=== PATIENT | male | born 1955 | race Hispanic/Latino ===

== ENCOUNTER 2018-04-04 06:39 | Day surgery (SDC) | payer MEDICARE, OTHER ==
[2018-04-04 07:30] LABS: Basophils # (Auto) 0.1 K/mm3 (0.0-0.1); Basophils % (Auto) 1.2 % (0.0-1.8); Eosinophils # (Auto) 0.2 K/mm3 (0.0-0.4); Eosinophils % (Auto) 2.5 % (0.0-4.3); Hematocrit 43.2 % (35.5-45.6); Hemoglobin 14.8 gm/dl (11.8-15.2); Lymphocytes # (Auto) 1.9 K/mm3 (1.2-5.4); Lymphocytes % (Auto) 20.9 % (13.4-35.0); Mean Corpuscular HGB Conc 34 % (32-34); Mean Corpuscular Hemoglobin 30 pg (28-32); Mean Corpuscular Volume 87 fl (84-94); Monocytes # (Auto) 0.8 K/mm3 (0.0-0.8); Monocytes % (Auto) 9.2 % (0.0-7.3); Platelet Count 215 K/mm3 (140-440); Red Blood Count 4.97 M/mm3 (3.65-5.03); Red Cell Distribution Width 15.7 % (13.2-15.2)
[2018-04-04 07:40] LABS: INR 1.01 (0.87-1.13)
[2018-04-04 07:42] LABS: BUN/Creatinine Ratio 21; Blood Urea Nitrogen 17 mg/dL (9-20); Calcium 8.9 mg/dL (8.4-10.2); Hemolysis Index 35
[2018-04-04] MEDS ORDERED: NACL 0.9% 500 ML 500 ML IV SCH (08:00)
[2018-04-04] MEDS ORDERED: ECOTRIN PO ONE (08:00)
[2018-04-04] MEDS ORDERED: HEPARIN/NS 5000 UNIT/500ML(CATH LAB) 1,000 ML IR ONE (08:26)
[2018-04-04] MEDS ORDERED: CALAN ONE (08:27)
[2018-04-04] MEDS ORDERED: XYLOCAINE 2% INFILTRATI ONE (08:27)
[2018-04-04] MEDS ORDERED: NITROGLYCERIN SYRINGE 3 ML ONE (08:27)
[2018-04-04] MEDS ORDERED: HEPARIN 10,000 UNITS/10 ML ONE (08:27)
[2018-04-04] MEDS ORDERED: VERSED ONE (08:47)
[2018-04-04] MEDS ORDERED: SUBLIMAZE ONE (08:47)
--- NOTE | 2018-04-04 11:55 | Cardiac Catherization Report ---
LEFT HEART CATHETERIZATION REFERRING PHYSICIAN: Ruben Irby MD INDICATION FOR PROCEDURE: The patient is a pleasant 63-year-old gentleman, who has significant dyspnea on exertion, multiple risk factors and abnormal nuclear stress test, referred for left heart catheterization. Risks, benefits, and potential alternatives were explained in length prior to obtaining informed consent. PROCEDURE IN DETAIL: The patient was brought to the catheterization lab in a postabsorptive state, prepped and draped in sterile fashion. Jose Antonio's test in right hand was normal. A 2 mL of 2% lidocaine used to anesthetize the right wrist. A standard 6-[place] hydrophilic sheath used to cannulate the right radial artery via modified Seldinger technique. All exchanges performed to exchange a J-tip guidewire. JL3.5 catheter used to engage the left main. No dampening or ventricularization. Cineangiography performed in all projections. JR4 catheter used to cross the aortic valve under fluoroscopic guidance. Left ventriculography performed in 30 [place] and 30 [place] projections via hand injections, catheter flushed. Manual pullback performed with continuous pressure monitoring. Catheter used to engage the right coronary. No dampening or ventricularization. Cineangiography performed in all projections. Next, due to hypertension and recurrent shortness of breath, we decided to proceed with a root aortography with a 6-[place] Citizen pigtail catheter and power injector. Next, the catheter was removed from the body of wire, sheath removed. Manual pressure to achieve hemostasis. DATA: Aortic pressure is 140/70, LV pressure is 140. LVEDP of 20 mmHg. The patient remained in normal sinus rhythm throughout the procedure. Left ventriculography reveals normal systolic performance with estimated ejection fraction of 55-60%. No evidence of aortic stenosis. CORONARY ANATOMY: This is a left dominant system. No significant disease in the left main. Left main bifurcates in left anterior descending and left circumflex, large vessels. Left circumflex is a large vessel, courses AV groove, left PDA, left OM. No significant disease. LAD is a large vessel, courses anterior intergroove, wraps around the apex. No significant disease in LAD or diagonal system. Right coronary is a small vessel, no significant disease, nondominant. Root aortography reveals normal contour, no evidence of dissection or penetrating aortic ulcer, no evidence of aortic insufficiency. I directly supervised the administration of moderate sedation with fentanyl and Versed from 8:53 a.m. to 9:14 a.m. CONCLUSIONS: 1. No angiographic evidence of significant epicardial coronary artery disease in this left dominant system. 2. Normal left ventricular systolic performance, estimated ejection fraction of 55-60%. 3. No evidence of aortic stenosis. 4. Root aortography without evidence of dissection, penetrating aortic ulcer, or aortic insufficiency. At this point, recommend aggressive primary and secondary prevention measures, standard radial care. Weight loss, diet modification, hypertension control, low salt diet. Results of procedure explained in length to the patient and family. All questions and concerns were addressed. The patient will be discharged home in stable condition. JOB# [id number] MONICA/ONUR
[2018-04-04 13:28] VITALS: BP 98/71
--- NOTE | 2018-04-04 14:19 | Short Stay Summary ---
Short Stay Documentation Date of service: 04/04/18 - History H&P: obtained from office - Allergies and Medications Current Medications: Allergies No Known Allergies Allergy (Unverified 04/04/18 06:40) Home Medications Medication Instructions Recorded Confirmed Last Taken Type Aspirin [Lo-Dose Aspirin EC] 81 mg PO DAILY 04/04/18 04/04/18 04/03/18 History Furosemide [Lasix TAB] 40 mg PO DAILY 04/04/18 04/04/18 04/03/18 History HYDROcodone/APAP 7.5-325 [[place] 1 tab PO Q4HR PRN 04/04/18 04/04/18 04/03/18 History 7.5-325 mg TAB] Metoprolol Xl [Metoprolol 25 mg PO QDAY 04/04/18 04/04/18 04/03/18 History SUCCINATE ER TAB] Potassium Chloride 10 meq PO DAILY 04/04/18 04/04/18 04/03/18 History hydroCHLOROthiazide [HCTZ] 25 mg PO DAILY 04/04/18 04/04/18 04/03/18 History - Brief post op/procedure progress note Date of procedure: 04/04/18 Pre-op diagnosis: abnormal stress test Post-op diagnosis: same Procedure: [facility] - see dictated cath report Anesthesia: local Estimated blood loss: none Condition: stable - Disposition Condition at discharge: Good Disposition: [id number] TO HOME OR SELFCARE - Discharge Diagnoses (1) Abnormal stress test Status: Acute (2) Dyspnea Status: Acute (3) Normal coronary arteries Status: Acute Short Stay Discharge Plan Activity: advance as tolerated Wound: open to air, keep clean and dry, per your surgeon's advice Follow up with: DAVIDSON CATES MD [Primary Care Provider] - 7 Days YAHAIRA TREVINO MD [Staff Physician] - 7 Days Forms: CardCath PCI D/C Instructions
== END 2018-04-04 12:45 | disposition home or self-care (01) ==
LOC: CATHLABREC 06:39
PROVIDERS: ATTEND Internal Medicine
DX: R06.09 Other forms of dyspnea (principal); R94.39 Abnormal result of other cardiovascular function study; G47.30 Sleep apnea, unspecified; M19.90 Unspecified osteoarthritis, unspecified site; H54.61 Unqualified visual loss, right eye, normal vision left eye; I10 Essential (primary) hypertension; R63.4 Abnormal weight loss; Z68.43 Body mass index [BMI] 50.0-59.9, adult; Z79.82 Long term (current) use of aspirin; Z79.899 Other long term (current) drug therapy; Z79.01 Long term (current) use of anticoagulants; Z86.718 Personal history of other venous thrombosis and embolism
CPT/HCPCS: 36415; 80048; 85025; 85610; 85730; 93005; 93010; 93458; 93567; 99156; C1894; J1644; J2250; J3010; J7040; Q9967